=== PATIENT | female | born 1975 | race Caucasian/White ===

== ENCOUNTER → 2020-04-29 08:40 | Outpatient (BNVA) | payer BC, SELFPAY | PROVIDERS: PCP Family Medicine; Visit Provider Physician Assistant | DX: Z76.89 Persons encountering health services in other specified circumstances (principal) ==

== ENCOUNTER → 2020-05-13 08:13 | Outpatient (BNVA) | payer BC, SELFPAY | PROVIDERS: PCP Family Medicine; Referring Provider Family Medicine; Visit Provider Surgery | DX: Z76.89 Persons encountering health services in other specified circumstances (principal) ==

== ENCOUNTER 2020-05-16 08:42 | Outpatient (REF) | payer BC, SELFPAY ==
[2020-05-16 09:41] LABS: MANUAL DIFF FLAG NO
[2020-05-16 09:53] LABS: Basophils Absolute Auto 0.1 X10*3/uL (0.0-0.2); Basophils Percent Auto 0.5 % (0-2); Eosinophils Absolute Auto 0.1 X10*3/uL (0.0-0.4); Eosinophils Percent Auto 1.1 % (0-4); Hematocrit 43.4 % (37-47); Hemoglobin 14.1 g/dl (12.0-16.0); Imm Gran Abs Auto 0.05 X10*3/uL (0.00-0.03); Imm Gran Pct Auto 0.5 % (0.0-0.4); Lymphocytes Absolute Auto 1.8 X10*3/uL (1.2-4.9); Lymphocytes Percent Auto 20.2 % (20-40); Mean Corpuscular HGB Conc 32.5 g/dl (31.0-35.0); Mean Corpuscular Hemoglobin 29.2 pg (27.0-33.0); Mean Corpuscular Volume 89.9 fL (80-98); Mean Platelet Volume 10.4 fL (9.4-12.3); Monocytes Absolute Auto 0.5 X10*3/uL (0.1-1.2); Monocytes Percent Auto 5.9 % (2-11); Neutrophils Absolute Auto 6.5 X10*3/uL (2.0-8.3); Neutrophils Percent Auto 71.8 % (45-73); Platelet Count 326 X10*3/uL (160-400); Red Blood Count 4.83 X10*6/uL (4.20-5.50); Red Cell Distribution Width 12.9 % (11.0-16.0); White Blood Count 9.1 X10*3/uL (4.8-10.8)
[2020-05-16 09:54] LABS: INTERNATIONAL NORM RATIO 1.1 (0.9-1.1); Prothrombin Time 13.1 SEC (10.8-13.0)
[2020-05-16 10:23] LABS: Alanine Aminotransferase 14 U/L (0-31); Albumin Level 4.6 g/dL (3.5-5.0); Alkaline Phosphatase 96 U/L (39-117); Anion Gap 17 (12-20); Aspartate Amino Transferase 17 U/L (5-31); Bilirubin Total 0.6 mg/dL (0.0-1.0); Blood Urea Nitrogen 14 mg/dL (9-16); C Reactive Protein 0.84 mg/dL (< or = 0.50); Calcium 9.4 mg/dL (8.4-10.2); Carbon Dioxide 25 mmol/L (22-29); Chloride 100 mmol/L (96-108); Estimated Glomerular Filt Rate > 60; Glucose Random 80 mg/dL (60-115); Potassium 4.6 mmol/l (3.3-5.1); Sodium 137 mmol/L (135-145); Total Protein 7.8 g/dL (6.5-8.0)
[2020-05-16 10:28] LABS: TSH reflex Free T4 1.26 mIU/mL (0.32-4.0)
[2020-05-16 10:33] LABS: Estimated Average Glucose 105 mg/dL; Hemoglobin A1c % 5.3 %
[2020-05-16 15:02] LABS: Cholesterol 191 mg/dL; HDL Cholesterol 41 mg/dL; LDL Cholesterol Calculated 135 mg/dl; Triglycerides 78 mg/dL
[2020-05-17 12:51] LABS: Insulin Level Total 4.8 uIU/mL
== END 2020-05-16 08:43 | disposition home or self-care (01) ==
LOC: HO.LAB 08:42
PROVIDERS: PCP Family Medicine; Visit Provider Surgery
DX: E66.9 Obesity, unspecified (principal)
CPT/HCPCS: 36415; 80053; 80061; 83036; 83525; 84443; 85025; 85610; 85730; 86140; 86850

== ENCOUNTER → 2020-05-20 13:41 | Outpatient (BNVA) | payer BC, SELFPAY | PROVIDERS: PCP Family Medicine; Visit Provider Physician Assistant | DX: Z76.89 Persons encountering health services in other specified circumstances (principal) ==

== ENCOUNTER 2020-05-24 05:53 | Inpatient (IN) | payer BC, SELFPAY ==
[2020-05-19 09:01] VITALS: BMI 36.5
[2020-05-20 11:58] VITALS: BMI 34.5
[2020-05-20 12:16] VITALS: BP 133/90; PULSE 89; RESP 20; O2SAT 98
--- NOTE | 2020-05-20 12:38 | HO.ANESPROP2 ---
HPI - Anesthesia Eval Consult details Narrative: 45 yo F for gastric sleeve PMFSH Past Medical History Medical History (Updated 06/01/20 @ 09:12 by Aidan Rangel MD) Anxiety Asthma Back pain Depression GERD (gastroesophageal reflux disease) History of use of contraceptive intrauterine device (IUD) Lab test negative for COVID-19 virus Left ventricular hypertrophy Migraines Obesity Functional capacity: independent ambulation Family History Family History Father HTN (hypertension) Hyperlipidemia Mother HTN (hypertension) Obesity Diabetes Anxiety Skin cancer Son No problems noted. Daughter No problems noted. Family history of problems with anesthesia: No Surgical History Surgical History (Updated 06/01/20 @ 08:03 by MARLIN Clements) H/O colonoscopy History of lumbar surgery History of sleeve gastrectomy Hx of section History of Problems with Anesthesia: No Social History Social History Alcohol intake: never Smoking Status: Former smoker Tobacco Type: Cigarette Years Smoked: 6 service: No Current occupational status: employed Narrative Narrative: No recent illness, multiple negative COVID tests for work >4 mets with exercise Meds Allergies Allergy/AdvReac Type Severity Reaction Status Date / Time bacitracin Allergy Intermediate Rash Verified 06/01/20 08:01 doxycycline Allergy Intermediate Rash Verified 06/01/20 08:01 IV Contrast Allergy Intermediate hives Uncoded 06/01/20 08:01 Home Medications Medication Instructions Recorded Confirmed Type albuterol sulfate 90 mcg/actuation 2 puff PO Q4H PRN 05/13/20 05/19/20 History aerosol inhaler duloxetine 60 mg capsule,delayed 60 mg PO QPM 05/13/20 05/20/20 History release sumatriptan succinate 100 mg tablet 100 mg PO BID PRN 05/13/20 05/19/20 History hydroxyzine HCl 50 mg PO BEDTIME 05/20/20 05/20/20 History lorazepam 1 mg PO BID PRN 05/20/20 05/20/20 History pantoprazole 40 mg PO QPM 05/20/20 05/20/20 History Exam Exam Date and Time: May 20, 2020 1238 Height,Weight and Vital Signs: Height 5 ft 6 in Weight 97.069 kg Last Vital Signs Pulse 89 05/20/20 12:16 Resp 20 10/30/20 12:16 BP 133/90 H 05/20/20 12:16 Pulse Ox 98 05/20/20 12:16 Pertinent Lab Results Pertinent Lab Results: Laboratory Tests 05/16/20 09:00 Blood Type AB Positive Antibody Screen NEGATIVE Laboratory Tests 05/16/20 05/16/20 05/16/20 09:00 09:00 09:00 WBC 9.1 Hgb 14.1 Hct 43.4 Plt Count 326 PT 13.1 H INR 1.1 APTT 39.0 H Sodium 137 Potassium 4.6 Chloride 100 Carbon Dioxide 25 BUN 14 Creatinine 0.87 Estimated GFR > 60 Hemoglobin A1c % Total Bilirubin 0.6 AST 17 ALT 14 Alkaline Phosphatase 96 C-Reactive Protein 0.84 H Total Protein 7.8 Albumin 4.6 TSH 1.26 05/16/20 09:00 WBC Hgb Hct Plt Count PT INR APTT Sodium Potassium Chloride Carbon Dioxide BUN Creatinine Estimated GFR Hemoglobin A1c % 5.3 Total Bilirubin AST ALT Alkaline Phosphatase C-Reactive Protein Total Protein Albumin TSH Narrative Narrative: EKG 03/18/20: NSR@ 91 ECHO 02/2020: Nml study Airway Mallampati Class: I TM Dist: >3cm Neck ROM: Full Loose/Missing/Broken Teeth: No Heart: RRR Lungs: CTAB Assessment and Plan Assessment Anesthesia Assessment: Anesthesia Plan Discussed and PAT Visit
--- NOTE | 2020-05-23 20:32 | MHC.SHP ---
Pre-Procedural Eval Section A The patient is an INPATIENT: Yes The History & Physical has been completed within 30 days and I have reviewed it.: Yes Section B Chief Complaint: obesity Relevant Family History (Specify if Yes): Yes Relevant Social History: None Present Medications: None Allergies: Allergies Allergy/AdvReac Type Severity Reaction Status Date / Time bacitracin Allergy Intermediate Rash Verified 05/19/20 09:00 doxycycline Allergy Intermediate Rash Verified 05/19/20 09:00 IV Contrast Allergy Intermediate hives Uncoded 05/19/20 09:00 Review of Systems Sugical H&P ROS: Negative: Constitution, Cardiovascular, Respiratory, Neurological, Psychiatric, Hem-Onc, Allergic/Immunologic, Gastrointestinal, Genitourinary, Musculoskeletal, Integumentary, Endocrine and Eyes/Ears/Nose/Throat Exam Surgical H&P Exam: Normal: HEENT, Normal: Heart, Normal: Lungs, Normal: Extremities, Normal: Abdomen, Normal: Skin and Normal: Neurological Plan Diagnosis/Plan: Unchanged Patient has been examined and remains a candidate for the planned procedure
[2020-05-24] VITALS (15 sets, daily range): BP systolic 128–158; BP diastolic 84–100; PULSE 83–120; RESP 12–20; TEMP 36.1–37; O2SAT 94–100
--- NOTE | 2020-05-24 | XR_ITS ---
EXAMINATION: XR CHEST CLINICAL INFORMATION: Rule out pneumothorax COMPARISON: Previous chest x-ray February 2020 TECHNIQUE: Frontal view of the chest was obtained. FINDINGS: The cardiac and mediastinal contours are stable. There is atelectasis or small infiltrate at the left lung base. The lungs are otherwise clear. There is no pleural effusion or pneumothorax. There are new postoperative changes below the left hemidiaphragm. Bony structures are unremarkable. XR/XR chest 1V IMPRESSION: Left lower lobe atelectasis or small infiltrate. No pneumothorax.
[2020-05-24 06:50] LABS: SARS COV2 PCR INHOUSE NEGATIVE (Negative)
[2020-05-24] MEDS: Lactated Ringers 1,000 ML 999 ML IVCONT (06:55)
[2020-05-24] MEDS: Lactated Ringers 1,000 ML 100 ML IVCONT (06:56)
[2020-05-24] MEDS: ceFAZolin Sodium/Dextrose,Iso 2 GM/50 ML PIGGYBACK IV ×2 (06:56→13:46)
--- NOTE | 2020-05-24 07:10 | P.CONAN_ITS ---
[facility] Past Medical History Medical History Anxiety Asthma Back pain Depression GERD (gastroesophageal reflux disease) History of use of contraceptive intrauterine device (IUD) Lab test negative for COVID-19 virus Migraines Obesity Functional capacity: independent ambulation Family History Family History Father HTN (hypertension) Hyperlipidemia Mother HTN (hypertension) Obesity Diabetes Anxiety Skin cancer Son No problems noted. Daughter No problems noted. Surgical History Surgical History H/O colonoscopy History of lumbar surgery Hx of section Social History Social History Are you a primary healthcare administrator to a significant other at home: Yes Do you presently have visiting nurse or other home services: No Alcohol intake: never Smoking Status: Former smoker Tobacco Type: Cigarette Years Smoked: 6 Smoked in Last 30 Days: No Smoking Quit Date: as teen Use of substances other than those prescribed or required for medical reasons: No Have you been hit, kicked, punched, or otherwise hurt by someone within the past year? If so, by whom?: No Advance Directives Information Provided: No Recently lost weight without trying: No Meds Allergies Allergy/AdvReac Type Severity Reaction Status Date / Time bacitracin Allergy Intermediate Rash Verified 05/19/20 09:00 doxycycline Allergy Intermediate Rash Verified 05/19/20 09:00 IV Contrast Allergy Intermediate hives Uncoded 05/19/20 09:00 Home Medications Medication Instructions Recorded Confirmed Type albuterol sulfate 90 mcg/actuation 2 puff PO Q4H PRN 05/13/20 05/19/20 History aerosol inhaler duloxetine 60 mg capsule,delayed 60 mg PO QPM 05/13/20 05/20/20 History release sumatriptan succinate 100 mg tablet 100 mg PO BID PRN 05/13/20 05/19/20 History hydroxyzine HCl 50 mg PO BEDTIME 05/20/20 05/20/20 History lorazepam 1 mg PO BID PRN 05/20/20 05/20/20 History pantoprazole 40 mg PO QPM 05/20/20 05/20/20 History Exam Exam Date and Time: May 24, 2020 0710 Height,Weight and Vital Signs: Height 5 ft 6 in Weight 97.069 kg Last Vital Signs Temp 98.1 F 05/24/20 06:24 Pulse 87 05/24/20 06:24 Resp 18 05/24/20 06:24 BP 128/86 05/24/20 06:24 Pulse Ox 97 05/24/20 06:24 Pertinent Lab Results Pertinent Lab Results: Laboratory Tests 05/16/20 05/24/20 05/24/20 09:00 05:42 05:52 Coronavirus (PCR) NEGATIVE Blood Type AB Positive AB Positive Antibody Screen NEGATIVE NEGATIVE Airway Mallampati Class: I TM Dist: >3cm Neck ROM: Full
[2020-05-24] MEDS: Famotidine/PF 20 MG/2 ML VIAL IVPUSH ×2 (11:00→20:43)
[2020-05-24 11:40] LABS: Hematocrit 41.8 % (37-47); Hemoglobin 13.3 g/dl (12.0-16.0)
[2020-05-24 12:05] LABS: Anion Gap 20 (12-20); Blood Urea Nitrogen 7 mg/dL (9-16); Calcium 7.7 mg/dL (8.4-10.2); Carbon Dioxide 17 mmol/L (22-29); Chloride 105 mmol/L (96-108); Creatinine Clr Calc Pharmacy 113.6; Estimated Glomerular Filt Rate > 60; Glucose Random 89 mg/dL (60-115); Potassium 4.6 mmol/l (3.3-5.1); Sodium 137 mmol/L (135-145)
--- NOTE | 2020-05-24 12:39 | P.BOP_ITS ---
Brief Operative Note Date of procedure: 05/24/20 Pre-op diagnosis: Severe obesity with a BMI of 38.9 kg/m2 and comorbidities (see below) Post-op diagnosis: other (Diaphragmatic hernia) Procedure: INITIAL PATIENT BMI ON PRESENTATION AT OUR OFFICE: 38.9 kg/m2 LAST BMI BEFORE SURGERY: 36.2 kg/m2 COMORBIDITIES: GERD, Depression, Anxiety, asthma, migraines, left ventricular hypertrophy The patient participated in an intensive weekly lifestyle intervention and exercise program during which the patient has lost between the initial office visit and the last preoperative visit 25.6 lbs, or 10.6% of initial actual body weight. The patient met the BMI-criteria for bariatric surgery based on the BMI on initial presentation. The patient should not be penalized for achieving such weight loss because it is not sustainable long-term without surgical intervention and it was achieved in preparation for bariatric surgery under my direction and based on my published research ([email or web address] and [email or web address]) that a 10% preoperative weight loss improves long-term weight loss after surgery and reduces perioperative complications. Insurance carriers such as [facility] have endorsed my recommendations and have included in their policies criteria to include a 10% preoperative weight loss requirement. PROCEDURE: Esophago-gastroscopy, laparoscopic repair of incarcerated diaphragmatic hernia, laparoscopic lysis of adhesions, laparoscopic sleeve gastrectomy and laparoscopic gastropexy INDICATIONS: This is a 45 year-old female who was electively scheduled for laparoscopic, possibly open sleeve gastrectomy. The risks and complications of the procedure were discussed with the patient in advance, particularly the possibility of ; pulmonary embolism; staple line leak; bleeding; GERD; cardiac, pulmonary, or renal complications; as well as long-term problems such as insufficient weight loss, vitamin deficiency, strictures, or ulcers. The patient understood all the risks, and was in agreement to proceed with surgery. DESCRIPTION OF PROCEDURE: After informed consent was obtained from the patient, the patient was given preoperative antibiotics, and was transferred to the operating room. After successful induction of general anesthesia, pneumatic compressive devices were placed on both lower extremities. An upper endoscopy was performed next. The oropharynx and esophagus appeared to be within normal limits. There was a diaphragmatic hernia present of moderate size consistent with the findings of the preoperative upper GI. The stomach was entered. Then after all fluid and air were suctioned and the stomach was fully decompressed, the scope was withdrawn and secured in the mid esophagus. The patient was then prepped and draped in the usual sterile manner, and abdominal access was established at the right upper quadrant with the Savana technique. A 12 mm blunt port was inserted, and the abdomen was insufflated with CO2 to a pressure of 15 mmHg. Under direct visualization, additional ports were placed, specifically two 5 mm Versi-step ports to the left upper quadrant, and a 5 mm Versi-Step port to the right upper quadrant. 1% lidocained plan was used to infiltrate all port sites as well as all fascia defects. Following that, the patient was placed in a steep reverse Trendelenburg position. An additional 5 mm port was placed to the right flank for the Mediflex retractor that was used to retract the left lobe of the liver. The gastro-esophageal fat pad was opened with the ultrasonic device (Thunderbeat, Olympus) and the anterior esophagus and hiatus were exposed. The angle of His was opened with the ultrasonic device the fundus of the stomach from any diaphragmatic and splenic attachments. I then opened the gastrocolic ligament between the transverse colon and the greater curvature of the stomach with the ultrasonic device to enter the lesser sac and facilitate the ligation of the short gastric vessels. I started at a mid-point along the greater curvature and using the Thunderbeat, all short gastric vessels were divided all the way to the angle of His until the left helen was completely dissected at its entirety. I then divided the gastro-colic ligament distally to a distance of about 3-4 cm proximal to the esophagus. There were extensive congenital adhesions between the pancreas and posterior gastric wall. Those were lysed completely with the ultrasonic device. Adhesiolysis took approximately 25 min to complete. There was an obvious significant-sized hiatal hernia. I continued dissecting along the hiatus toward the left helen and the angle of His. I fully mobilized the fat pad that was incarcerated in the hernia. I then continued by dissecting even further into the posterior retro-esophageal space all the way to the angle of His. I continued to mobilize the esophagus into the mediastinum circumferentially. The right helen was also completely dissected. Both vagal nerves were seen and preserved. At that point, I was able to have at least 3 to 5 cm of esophagus into the abdomen. After I completely mobilized the esophagus from both the left and right helen and I had a good mobilization of the esophagus circumferentially, I closed the hernia defect with three interrupted #0 Surgidac suture using the Endo Stitch device, one of which were placed posterior and two anterior to the esophagus. The stomach was then divided transversely with one Endo CALEB-45 and four CALEB-60 articulating purple loads using the ReviewPro stapler and loads. Every effort was made that the gastric sleeve had a tubular shape and an even caliber throughout. Once the sleeve resection was completed, the staple line of the gastric sleeve was reinforced with Hemoclips. The resected stomach was retrieved without difficulty from the Savana port. A gastropexy was then performed in order to prevent postoperative GERD and partial gastric volvulus. Several interrupted 2.0 Surgidac sutures were placed between the sleeve's staple line and the previously divided greater omentum and gastro-colic ligament using the Endo-Stitch device. An upper endoscopy was performed. There was no narrowing at the GE junction. The scope was easily advanced all the way to the pylorus which was clearly visualized. There was no narrowing anywhere and the sleeve's caliber was even throughout. The sleeve's staple line was inspected and there was no evidence of ischemia, bleeding or dehiscence. At that point the gastroscope was withdrawn from the patient?s mouth while we were decompressing the bowel and the stomach f rom any remaining air. I looked into the lesser sac to see how the sleeve was situating and it was situating well. There was no bleeding from the staple line, spleen, or short gastric vessels. The Mediflex retractor was removed, and the undersurface of the liver was inspected and there was no bleeding. The patient was placed in supine position. I closed the fascial defect of the 12 mm port site with a figure of eight #1 Polysorb suture. Then 100 cc 0.25 % Marcaine plain with 10 mg of Dexamethasone were used to infiltrate the fascial closure as well as all skin incisions. At this point, the abdomen was deflated, all ports were removed under direct vision, and no bleeding was noted from any of the port sites. The skin incisions were irrigated with saline and were closed with 4-0 absorbable monofilament sutures. Steri-Strips and OpSites were used to cover all incisions. The patient was extubated and was transferred in stable condition to the recovery room for further care. I was present and performed all raymond parts of the procedure. Ms. Amos was the paraprofessional education assistant. There were no residents to assist with this case. Please send copy of the operative report to Dr. lEias Gonzalez. Hugo Rangel MD, PhD, FACS Surgeon: Aidan Rangel MD Anesthesia: GETA, local and other (TAP block ) Insurance Healthcare Consultant: Gabby Amos Estimated blood loss (mL): 10 IV fluids (mL): 3,000 Urine output (mL): 0 (No Thompson to record) Pathology: other (Stomach) Condition: stable Disposition: PACU
--- NOTE | 2020-05-24 12:45 | PM.PNGS ---
Subjective Subjective Interval history: Patient has mild incisional pain. Was able to ambulate and use the incentive spirometer. Physical Exam Vital Signs: Vital Signs: Vital Signs Temp Pulse Resp BP Pulse Ox 05/24/20 12:15 109 H 16 148/98 H 100 05/24/20 12:00 107 H 16 143/96 H 99 05/24/20 11:45 108 H 16 140/97 H 98 05/24/20 11:30 107 H 16 145/98 H 97 05/24/20 11:15 113 H 16 142/100 H 98 05/24/20 11:00 117 H 16 152/96 H 99 05/24/20 10:44 120 H 16 158/95 H 100 05/24/20 10:39 109 H 14 149/93 H 100 05/24/20 10:34 108 H 14 128/85 99 05/24/20 10:29 97.3 F 111 H 12 148/96 H 98 05/24/20 06:24 98.1 F 87 18 128/86 97 Body Mass Index 34.5 Resp: Effort & Inspection: normal respiratory effort Cardio: Jugular venous distension: no JVD Rate: regular rate GI: Inspection: Yes normal to inspection, Yes incision (dry, clean and intact) and Yes obesity Extrem: Right lower extremity: normal to inspection (no calf tenderness) Left lower extremity: normal to inspection (no calf tenderness) Progress Note: A&P Assessment and plan (1) Obesity: Status: Acute Assessment and Plan: 45 year old female was admitted 05/24/20 with morbid obesity and comorbidities. Problem 1: s/p laparoscopic sleeve gastrectomy, gastropexy, diaphragmatic hernia repair and lysis of adhesions Status: Doing well Plan: Check am labs, If OK, will continue phase 1 bariatric diet and discharge later today. (2) BMI 35.0-35.9,adult: Status: Acute (3) Anxiety: Status: Acute (4) Depression: Status: Acute (5) GERD (gastroesophageal reflux disease): Problem details: new Rx for pantoprazole Prophylactic Status: Acute (6) Migraines: Problem details: 1-2 x?s monthly Status: Acute (7) Asthma: Problem details: exercise induced-has prn inhaler Status: Acute (8) Diaphragmatic hernia: Status: Acute (9) S/P laparoscopic sleeve gastrectomy: Status: Acute (10) Status post repair of paraesophageal diaphragmatic hernia: Status: Acute (11) Left ventricular hypertrophy: Status: Acute Fall Risk Details Current Medications: Current Medications Generic Name Dose Route Start Last Admin Trade Name Freq PRN Reason Stop Dose Admin Albuterol Sulfate 2.5 mg 05/24/20 05:41 Albuterol Sulfate (0.083%) 2.5 Mg/3 Ml Vial.Neb INHALE ONCE PRN Shortness of Breath/Wheezing Albuterol Sulfate 2.5 mg 05/24/20 09:50 Albuterol Sulfate (0.083%) 2.5 Mg/3 Ml Vial.Neb INHALE ONCE PRN Wheezing Albuterol Sulfate 2 puff 05/24/20 10:34 Albuterol Sulfate 90 Mcg 8 Gm Inhaler INHALE Q4H PRN Shortness Of Breath Albuterol Sulfate 2 puff 05/24/20 12:00 Albuterol Sulfate 90 Mcg 8 Gm Inhaler INHALE RQ6H DESIRE Duloxetine HCl 60 mg 05/24/20 21:00 Duloxetine Hcl 60 Mg Capsule. PO BEDTIME DESIRE Famotidine 20 mg 05/24/20 10:45 05/24/20 11:00 Famotidine/Pf 20 Mg/2 Ml Vial IVPUSH 20 mg BID DESIRE Administration Fentanyl 50 mcg 05/24/20 09:50 Fentanyl Citrate/Pf 100 Mcg/2 Ml Vial IVPUSH Q5M PRN Pain, Severe (Pain Scale 7-10) Hydromorphone HCl 0.25 mg 05/24/20 10:26 Hydromorphone Hcl 0.5 Mg/0.5 Ml Syringe IVPUSH Q4H PRN Pain, Moderate (Pain Scale 4-6 Hydroxyzine HCl 50 mg 05/24/20 21:00 Hydroxyzine Hcl 25 Mg Tablet PO BEDTIME DESIRE Lactated Ringer's 1,000 mls @ 100 mls/hr 05/24/20 05:45 05/24/20 06:56 Lr IVCONT 100 mls/hr .Q10H DESIRE Administration Lactated Ringer's 1,000 mls @ 150 mls/hr 05/24/20 10:30 Lr IVCONT .Q6H40M DESIRE Cefazolin Sodium/Dextrose 2 gm in 50 mls @ 100 mls/hr 05/24/20 14:00 Ancef IV 05/24/20 14:29 POSTOP ONE Acetaminophen 1,000 mg in 100 mls @ 400 mls/hr 05/24/20 12:00 Ofirmev IV Q6H DESIRE Lorazepam 1 mg 05/24/20 10:34 Lorazepam 1 Mg Tablet PO BID PRN Anxiety Metoclopramide HCl 10 mg 05/24/20 10:26 Metoclopramide Hcl 10 Mg/2 Ml Vial IVPUSH Q6H PRN Nausea Ondansetron HCl 4 mg 05/24/20 09:50 Ondansetron Hcl 4 Mg/2 Ml Vial IVPUSH ONCE PRN Nausea and Vomiting Ondansetron HCl 4 mg 05/24/20 11:00 Ondansetron Hcl 4 Mg/2 Ml Vial IVPUSH Q8H DESIRE Ondansetron HCl 4 mg 05/24/20 10:54 Ondansetron Odt 4 Mg Tab.Rapdis TRANSLINGU Q6H PRN nausea and vomiting Sodium Chloride 3 ml 05/24/20 16:00 0.9 % Sodium Chloride Flush 3 Ml Syringe IVFLUSH QSHIFT DESIRE Sumatriptan Succinate 100 mg 05/24/20 10:34 Sumatriptan Succinate 100 Mg Tablet PO BID PRN Headache Time Spent With Patient Time: Total time spent is greater than 50% in coordination of care (as documented) at patient's floor/unit and/or counseling patient: Time with patient: less than 15 minutes
--- NOTE | 2020-05-24 15:00 | MHC.CM.PN ---
NURSE STOKER ERECTOR NOTE EECTRNIC MEDICAL RECORD REVIEWEDAONG WITH CASE DISCUSSED WITH STAFF NURSE . MET WITH PATIENT AND EXPLAINED THE ROLE OF THE NURSE STOKER ERECTOR IN THE TRANSITION FROM HOSPITA TO E, EDUCATED ABOUT THE IMPORTANCE OF HAVING A HEALTH CARE PROXY. PATIENT WAS AWAKE ALERT , BUT WAS COMPAINING IF A HEADACHE, (SHADES WERE PULED TO HELP) AND INFORMED STAFF NURSE THAT PATIENT WAS QUESTIONING WHETHER SHE COULD HAVE SOME TYELENOL, PATIENT LIVES WITH HER AND TWO CHILDREN SHE IS EMPLOYED AT [employer] WITH THE MRI. (SHE HAS TAKEN THREE WEEKS OFF AND HAS SHORT TERM DISABIITY PAPERWORK THAT NEEDS TO BE COMPLETED BY THE BARIATRIC SURGEONS. SHE CONFIRMED HER PCP, SHE IS ACTIVE ,INDEPENDENT IN ALL ADLS AND MOBILITY. SHE IS FOLLWED FOR HER ANXIETY/DEPRESSIONY S/P BARIATRIC SURGIICAL PROCEDURE. DISCHARGE PLAN HOME WITH ANTICIPATED NO SERVICES TRANSPRTATIN AT DISCHARGE FAMILY PCP DR TORI JACQUES N PATIENT TO CALL FOR POST HOSPITAL DISCHARGE FOLLOW UP. DID CONFIRM THAT SHE HAS ANXIETY AND DEPRESSION AND HAS SERVICES SELF RESUMPTION OF HER MENTAL HEALTH COUNSEING
[2020-05-24] MEDS: Lactated Ringers 1,000 ML 150 ML IVCONT ×2 (17:10→21:26)
[2020-05-24] MEDS: SUMAtriptan succinate 100 MG TABLET PO (17:49)
[2020-05-24] MEDS: ondansetron HCL 4 MG/2 ML VIAL IVPUSH (18:23)
[2020-05-24] MEDS: Albuterol Sulfate 90 MCG 8 GM INHALER 2 PUFF INHALE (19:12)
[2020-05-24] MEDS: DULoxetine HCl 60 MG CAPSULE.DR PO (20:44)
[2020-05-24] MEDS: hydrOXYzine HCL 25 MG TABLET 50 MG PO (20:44)
[2020-05-25] MEDS: 0.9 % Sodium Chloride Flush 3 ML SYRINGE IVFLUSH (00:14)
[2020-05-25] MEDS: ondansetron HCL 4 MG/2 ML VIAL IVPUSH ×2 (02:48→12:00)
[2020-05-25 03:38] VITALS: BP 139/74; PULSE 76; RESP 19; TEMP 36.8; O2SAT 97
[2020-05-25] MEDS: Lactated Ringers 1,000 ML 150 ML IVCONT ×2 (04:20→11:59)
[2020-05-25] MEDS: Albuterol Sulfate 90 MCG 8 GM INHALER 2 PUFF INHALE (05:58)
--- NOTE | 2020-05-25 06:00 | XR_ITS ---
EXAMINATION: XR CHEST CLINICAL INFORMATION: Postop atelectasis COMPARISON: Previous chest x-ray most recent from yesterday TECHNIQUE: 2 views of the chest were obtained. FINDINGS: The cardiac and mediastinal contours are stable. There is interval improvement in left base atelectasis compared to yesterday's exam. The lungs are clear. There is slight blunting at the left lateral costophrenic angle questionable for a tiny left pleural effusion. There is no pneumothorax. Bony structures are unremarkable. There are postsurgical changes under the left hemidiaphragm. XR/XR chest 2V IMPRESSION: Improved left base atelectasis from yesterday's exam.
--- NOTE | 2020-05-25 06:30 | PC.NURSE ---
patient pod#1 had a good shift and napped well with no s/sx resp distress. voided in bathroom, recorded po water on sheet at bedside independently. pain management with iv tylenol as ordered, no n/v. transported via w/c and drying machine back tender to radiology for am ordered cxr by . note sent to surgeon to verify okay for xray to be done in ed setting as a post op pt, no response. approval for transport by nursing grinding and spraying supervisor. patient returned to s3 without incident, ambulated >300 feet with assigned rn around unit prior to xray appt. watching tv in bed at 0635
[2020-05-25 07:58] VITALS: BP 135/73; PULSE 81; RESP 19; TEMP 36.5; O2SAT 100
[2020-05-25] MEDS: Famotidine/PF 20 MG/2 ML VIAL IVPUSH (08:31)
--- NOTE | 2020-05-25 08:57 | MHC.CM.PN ---
nurse railway signalling engineer MONA [employer]IC MEDICAL REC ORD REVIEWED ALONG WITH CASE DISCUSSED WITH STAFF LYNDON , MET WITH PATIENT AGAIN TODAY SHE REPORTED HER HEADACH IMPROVED AFTER RECIVING SOME MEDICINE YESTERDAY , SHE REPORTED SHE HAD A DIDDIXUT NIGHT TOSSING AND TURNING AND THEN GETING UP TO THE BATHROOM, MOST LIKELY BEING IN A DIFFERENT PLACE. SHE IS ANTICIPATED TO BE DISCHARGED HOME TODAY NO SERVICES . DISCHARGE PLAN HOME WITH NO SERVICES FOLLOW UP WITH THE BARIATRIC SURGEON PER DISCHARGE INSTRUCTIONS SELF RESUMPTION FOR HER MENTAL [facility] COUNSELING PCP DR DR JACQUES PATIENT INSTRUCTED TO [facility] FOR POST HOSPITLAL DISCHARGE FOR FOLLOW UP TRANSPORTATION FAMILY
[2020-05-25 09:45] LABS: MANUAL DIFF FLAG NO
[2020-05-25 09:51] LABS: Basophils Percent Auto 0.3 % (0-2); Eosinophils Absolute Auto 0.1 X10*3/uL (0.0-0.4); Eosinophils Percent Auto 0.6 % (0-4); Hematocrit 39.2 % (37-47); Hemoglobin 12.8 g/dl (12.0-16.0); Imm Gran Abs Auto 0.05 X10*3/uL (0.00-0.03); Imm Gran Pct Auto 0.4 % (0.0-0.4); Lymphocytes Absolute Auto 2.1 X10*3/uL (1.2-4.9); Lymphocytes Percent Auto 18.2 % (20-40); Mean Corpuscular HGB Conc 32.7 g/dl (31.0-35.0); Mean Corpuscular Hemoglobin 29.2 pg (27.0-33.0); Mean Corpuscular Volume 89.3 fL (80-98); Mean Platelet Volume 10.9 fL (9.4-12.3); Monocytes Absolute Auto 0.8 X10*3/uL (0.1-1.2); Monocytes Percent Auto 6.9 % (2-11); Neutrophils Absolute Auto 8.6 X10*3/uL (2.0-8.3); Neutrophils Percent Auto 73.6 % (45-73); Platelet Count 290 X10*3/uL (160-400); Red Blood Count 4.39 X10*6/uL (4.20-5.50); Red Cell Distribution Width 13.2 % (11.0-16.0); White Blood Count 11.6 X10*3/uL (4.8-10.8)
[2020-05-25 10:34] LABS: Anion Gap 15 (12-20); Blood Urea Nitrogen 7 mg/dL (9-16); Calcium 7.8 mg/dL (8.4-10.2); Carbon Dioxide 22 mmol/L (22-29); Chloride 104 mmol/L (96-108); Creatinine Clr Calc Pharmacy 121.7; Estimated Glomerular Filt Rate > 60; Glucose Random 78 mg/dL (60-115); Potassium 4.3 mmol/l (3.3-5.1); Sodium 137 mmol/L (135-145)
--- NOTE | 2020-05-25 12:33 | HO.POSTANES ---
Post Anesthesia Evaluation Post Anesthesia Evaluation Vital Signs: Vital Signs Temp Pulse Resp BP Pulse Ox 05/25/20 07:58 97.7 F 81 19 135/73 100 05/25/20 03:38 98.3 F 76 19 139/74 97 Anesthesia: General Endotracheal-GETA Mental Status: Awake Pain Control: Satisfactory Nausea/Vomiting: None Hydration: Adequate Anesthesia-Related Issues: No Anes. Related Issues
--- NOTE | 2020-07-14 09:09 | P.DS_ITS ---
DS: Providers Provider Date of admission: 05/24/20 05:53 Primary care physician: Rivera Gonzalez MD DS: Diagnosis Discharge Diagnosis (1) Obesity: Status: Acute (2) BMI 35.0-35.9,adult: Status: Acute (3) Anxiety: Status: Acute (4) Depression: Status: Acute (5) GERD (gastroesophageal reflux disease): Status: Acute Problem details: new Rx for pantoprazole Prophylactic (6) Migraines: Status: Acute Problem details: 1-2 x?s monthly (7) Asthma: Status: Acute Problem details: exercise induced-has prn inhaler (8) Diaphragmatic hernia: Status: Acute (9) S/P laparoscopic sleeve gastrectomy: Status: Acute (10) Status post repair of paraesophageal diaphragmatic hernia: Status: Acute (11) Left ventricular hypertrophy: Status: Acute DS: Medications Discharge Medications Home Medications: Home Medications Medication Instructions Recorded Confirmed albuterol sulfate 90 mcg/actuation 2 puff PO Q4H PRN 05/13/20 05/19/20 aerosol inhaler duloxetine 60 mg capsule,delayed 60 mg PO QPM 05/13/20 05/20/20 release sumatriptan succinate 100 mg tablet 100 mg PO BID PRN 05/13/20 05/19/20 hydroxyzine HCl 50 mg PO BEDTIME 05/20/20 05/20/20 lorazepam 1 mg PO BID PRN 05/20/20 05/20/20 pantoprazole 40 mg PO QPM 05/20/20 05/20/20 Previous Rx's Medication Instructions Recorded ondansetron HCl 4 mg tablet 4 mg PO Q6H PRN #30 tab 05/13/20 sucralfate 1 gram tablet 1 g PO BID #60 tab 05/30/20 cholecalciferol (vitamin D3) 50 50 mcg PO DAILY #90 cap 07/08/20 mcg (2,000 unit) capsule DS: Summary Time Spent with Patient Time attestation: Total time spent providing and/or coordinating discharge services: Physical Exam Vital Signs: Vital Signs: Last Vital Signs Temp 97.7 F 05/25/20 07:58 Pulse 81 05/25/20 07:58 Resp 19 05/25/20 07:58 BP 135/73 05/25/20 07:58 Pulse Ox 100 05/25/20 07:58 Body Mass Index 34.5 DS: Data Data Completed and Pending Completed studies during hospitalization [Text1]: Pending at discharge 05/24/20 08:32 Surgical [PTH] Routine Procedures Excision of Stomach, Percutaneous Endoscopic Approach, Vertical (05/24/20) Release Peritoneum, Percutaneous Endoscopic Approach (05/24/20) Repair Diaphragm, Percutaneous Endoscopic Approach (05/24/20) Labs on day of discharge: 05/16/20 09:00 Type and Screen Routine 05/23/20 07:30 Lactated Ringers [Lr] 1,000 ml IVCONT 999 mls/hr 05/23/20 20:33 ceFAZolin Sodium/Dextrose,Iso [Ancef] 2 gm in 50 ml IV PREOP 05/24/20 XR chest 1V Stat 05/24/20 05:41 Acetaminophen [Ofirmev] 1,000 mg in 100 ml IV PREOP Albuterol Sulfate (0.083%) [Ventolin (0.083%)] 2.5 mg INHALE ONCE PRN 05/24/20 05:42 SARS COV2 PCR INHOUSE Stat 05/24/20 05:45 Lactated Ringers [Lr] 1,000 ml IVCONT 100 mls/hr 05/24/20 05:52 Type and Screen Stat 05/24/20 06:26 Acetaminophen [Ofirmev] 1,000 mg in 100 ml IV As directed ceFAZolin Sodium/Dextrose,Iso [Ancef] 2 gm in 50 ml .ROUTE As directed 05/24/20 06:58 dexAMETHasone Sod Phosphate/PF [Decadron] 10 mg .ROUTE .STK-MED ONE 05/24/20 07:03 Bupivacaine MPF 0.25 % [Sensorcaine-MPF 0.25% 10 ML] 10 ml .ROUTE .STK-MED ONE Lidocaine HCl 1 % MPF [Xylocaine 1 % MPF] 5 ml .ROUTE .STK-MED ONE 05/24/20 07:09 Continuous pulse oximetry CONT Vital Signs Q1H Vital Signs Q5MIN 05/24/20 07:22 Ketamine HCl/NS 50 mg IVPUSH .STK-MED ONE Lidocaine HCl 2 % MPF [Xylocaine 2 % MPF] 5 ml .ROUTE .STK-MED ONE Midazolam HCl/PF [Versed] 2 mg IVPUSH .STK-MED ONE Rocuronium [place] [Zemuron] 100 mg IV .STK-MED ONE fentaNYL citrate/PF [Sublimaze] 50 mcg .ROUTE .STK-MED ONE propofoL [Diprivan] 200 mg IVPUSH .STK-MED ONE 05/24/20 08:02 dexAMETHasone sod phosphate [Decadron] 4 mg .ROUTE .STK-MED ONE 05/24/20 08:09 ondansetron HCL [Zofran] 4 mg .ROUTE .STK-MED ONE 05/24/20 08:22 Phenylephrine HCL 1,000 mcg IVPUSH .STK-MED ONE 05/24/20 08:27 HYDROmorphone HCl [Dilaudid] 2 mg .ROUTE .[facility]-MED ONE 05/24/20 08:32 Surgical [PTH] Routine 05/24/20 09:29 Sugammadex Sodium [Bridion] 200 mg IVPUSH .STK-MED ONE ondansetron HCL [Zofran] 4 mg .ROUTE .[facility]-MED ONE 05/24/20 09:32 Glycopyrrolate [Robinul] 0.2 mg .ROUTE .ST-MED ONE Ketamine HCl/NS 50 mg IVPUSH .STK-MED ONE propofoL [Diprivan] 200 mg IVPUSH .[facility]-MED ONE 05/24/20 09:50 Continuous pulse oximetry CONT Oxygen administration Nasal Cannula 3 lpm Vital Signs Q1H Vital Signs Q5MIN Albuterol Sulfate (0.083%) [Ventolin (0.083%)] 2.5 mg INHALE ONCE PRN fentaNYL citrate/PF [Sublimaze] 50 mcg IVPUSH Q5M PRN ondansetron HCL [Zofran] 4 mg IVPUSH ONCE PRN 05/24/20 09:57 Esmolol HCl [Brevibloc] 100,000 mcg .ROUTE .STK-MED ONE 05/24/20 Breakfast NPO Diet 05/24/20 10:26 Ambulate Q4H WHILE AWAKE Compression Therapy QSHIFT Head of bed elevation DIRECTED Incentive Spirometry Q1HR WHILE AWAKE Intake and Output Q4HR Code Status Routine Albuterol Sulfate [Ventolin] 2 puff INHALE RQ6H PRN HYDROmorphone HCl [Dilaudid] 0.25 mg IVPUSH Q4H PRN Metoclopramide HCl [Reglan] 10 mg IVPUSH Q6H PRN 05/24/20 10:27 Apply Abdominal Binder TOLERATED Vital Signs Q4H 05/24/20 10:30 Lactated Ringers [Lr] 1,000 ml IVCONT 150 mls/hr 05/24/20 10:34 Albuterol Sulfate [Ventolin] 2 puff INHALE Q4H PRN LORazepam [Ativan] 1 mg PO BID PRN SUMAtriptan succinate [Imitrex] 100 mg PO BID PRN 05/24/20 10:45 Famotidine/PF [Pepcid/PF] 20 mg IVPUSH BID 05/24/20 10:54 ondansetron ODT [Zofran ODT] 4 mg TRANSLINGU Q6H PRN 05/24/20 10:57 Famotidine/PF [Pepcid/PF] 20 mg IVPUSH .STK-MED ONE 05/24/20 11:00 Basic Metabolic Panel Stat Hemoglobin and Hematocrit Stat ondansetron HCL [Zofran] 4 mg IVPUSH Q8H 05/24/20 12:00 Acetaminophen [Ofirmev] 1,000 mg in 100 ml IV Q6H Albuterol Sulfate [Ventolin] 2 puff INHALE RQ6H 05/24/20 14:00 ceFAZolin Sodium/Dextrose,Iso [Ancef] 2 gm in 50 ml IV POSTOP 05/24/20 16:00 0.9 % Sodium Chloride Flush [NS Flush] 3 ml IVFLUSH QSHIFT 05/24/20 21:00 DULoxetine HCl [Cymbalta] 60 mg PO BEDTIME hydrOXYzine HCL [Atarax] 50 mg PO BEDTIME 05/25/20 06:00 XR chest 2V Routine 05/25/20 09:07 Basic Metabolic Panel DAILY@0600 Complete Blood Count Auto Diff DAILY@0600 Laboratory Last Values WBC 11.6 X10*3/uL (4.8-10.8) H 05/25/20 09:07 RBC 4.39 X10*6/uL (4.20-5.50) 05/25/20 09:07 Hgb 12.8 g/dl (12.0-16.0) 05/25/20 09:07 Hct 39.2 % (37-47) 05/25/20 09:07 MCV 89.3 fL (80-98) 05/25/20 09:07 MCH 29.2 pg (27.0-33.0) 05/25/20 09:07 MCHC 32.7 g/dl (31.0-35.0) 05/25/20 09:07 RDW 13.2 % (11.0-16.0) 05/25/20 09:07 Plt Count 290 X10*3/uL (160-400) 05/25/20 09:07 MPV 10.9 fL (9.4-12.3) 05/25/20 09:07 Immature Gran % (Auto) 0.4 % (0.0-0.4) 05/25/20 09:07 Neut % (Auto) 73.6 % (45-73) H 05/25/20 09:07 Lymph % (Auto) 18.2 % (20-40) L 05/25/20 09:07 [place] % (Auto) 6.9 % (2-11) 05/25/20 09:07 Eos % (Auto) 0.6 % (0-4) 05/25/20 09:07 Baso % (Auto) 0.3 % (0-2) 05/25/20 09:07 Lymph # (Auto) 2.1 X10*3/uL (1.2-4.9) 05/25/20 09:07 [place] # (Auto) 0.8 X10*3/uL (0.1-1.2) 05/25/20 09:07 Eos # (Auto) 0.1 X10*3/uL (0.0-0.4) 05/25/20 09:07 Baso # (Auto) 0.0 X10*3/uL (0.0-0.2) 05/25/20 09:07 Abs Immat Gran (auto) 0.05 X10*3/uL (0.00-0.03) H 05/25/20 09:07 Absolute Neuts (auto) 8.6 X10*3/uL (2.0-8.3) H 05/25/20 09:07 Absolute Nucleated RBC 0.000 X10*3/uL (0.0-0.012) 05/25/20 09:07 Nucleated RBC % (auto) 0.0 /100WBC (0.0-0.2) 05/25/20 09:07 Sodium 137 mmol/L (135-145) 05/25/20 09:07 Potassium 4.3 mmol/l (3.3-5.1) 05/25/20 09:07 Chloride 104 mmol/L (96-108) 05/25/20 09:07 Carbon Dioxide 22 mmol/L (22-29) 05/25/20 09:07 Anion Gap 15 (12-20) 05/25/20 09:07 BUN 7 mg/dL (9-16) L 05/25/20 09:07 Creatinine 0.70 mg/dL (0.5-1.4) 05/25/20 09:07 Estim Creat Clear Calc 121.7 05/25/20 09:07 Estimated GFR > 60 05/25/20 09:07 Random Glucose 78 mg/dL (60-115) 05/25/20 09:07 Calcium 7.8 mg/dL (8.4-10.2) L 05/25/20 09:07 Coronavirus (PCR) NEGATIVE (Negative) 05/24/20 05:42 Blood Type AB Positive 05/24/20 05:52 Antibody Screen NEGATIVE 05/24/20 05:52 Discharge Plan Discharge Anticipated Discharge Date/Time: 05/25/20 11:37 Patient Disposition: Home, Self-Care Referrals: Rivera Gonzalez MD [Primary Care Provider] - Discharge Medications: Continued lorazepam 1 mg Tablet 1 mg PO BID PRN (Reason: Anxiety) RF: 0 pantoprazole 40 mg tablet,delayed release (DR/EC) 40 mg PO QPM RF: 0 hydroxyzine HCl 25 mg Tablet 50 mg PO BEDTIME RF: 0 sumatriptan succinate 100 mg tablet 100 mg PO BID PRN (Reason: Headache) RF: 0 duloxetine 60 mg capsule,delayed release(DR/EC) 60 mg PO QPM RF: 0 albuterol sulfate 90 mcg/actuation HFA aerosol inhaler 2 puff PO Q4H PRN (Reason: Shortness Of Breath) RF: 0 ondansetron HCl [Zofran] 4 mg tablet 4 mg PO Q6H PRN (Reason: nausea and vomiting) Qty: 30 RF: 0 No Action sucralfate 1 gram tablet 1 g PO BID Qty: 60 RF: 6 cholecalciferol (vitamin D3) 50 mcg (2,000 unit) capsule 50 mcg PO DAILY Qty: 90 RF: 1 Discharge Orders: Discharge Order (Routine); Ordered 05/25/20 Ordered By: Aidan Rangel Diet: other Activity on Discharge: No heavy lifting Discharge Date/Time: 05/25/20 13:12 Activity Restrictions/Additional Instructions: INSTRUCTIONS You are being discharged home on bariatric diet phase 1. Continue this today and start bariatric phase 2 tomorrow morning. Follow all instructions in the bariatric hand book and call with any questions. No lifting, sexual relations, tub baths or vigorous exercise, do not restart until told to do so by Dr Rangel. No alcohol, tobacco or caffeine products. ADMITTING DIAGNOSIS: morbid obesity, anxiety/depression, asthma, GERD, migraines DISCHARGE DIAGNOSIS: same, s/p laparoscopic sleeve gastrectomy and hiatal hernia PAST SURGICAL HISTORY: section, lumbar surgery PROCEDURE: upper endoscopy, laparoscopic sleeve gastrectomy and repair of hiatal hernia DISCHARGE SUMMARY: History of Present Illness: The patient is a 45 year-old woman with a BMI of 38.96 kg/m2 and associated co- morbidities as described above. The patient had extensive work-up,lost 19.4 lbs preoperatively and was electively scheduled for laparoscopic, possible open sleeve gastrectomy and gastropexy. Risks and complications of the surgery were discussed with the patient in advance, particularly the possibility of , pulmonary embolism, anastomotic leak, bleeding, bowel injury, GERD, cardiac, renal or pulmonary complications. The patient understood all the risks and wasin agreement with the surgical plan. Hospital Course: The patient underwent an uneventful laparoscopic sleeve gastrectomy with gastropexy and repair of hiatal hernia on the day of admission. Postoperatively, the patient was transferred to the surgical floor and hemoglobin the first 8 hours after surgery was 13.3 mg/dl. The patient was on IV Acetaminophen and IV dilaudid for pain control. Patient was started on bariatric phase 1 diet POD #0. On postoperative day one, the patient was feeling well without nausea, vomiting, fevers, or tachycardia. The patient had some mild incisional pain. The abdomen was soft. On the morning of postoperative day one, the patient was continued on 1 ounce of water or ice every half hour. During the first day, the patient did fairly well, having some incisional pain, but able to ambulate adequately and to tolerate liquids well. Since the patient is doing well, we decided that the patient was ready to be discharged. The patient was given instructions to follow-up with me next week an d to call my office for any fever over 101, persistent abdominal pain, nausea, vomiting, GERD, change in the color of the DONALD fluid, symptoms of DVT such as calf tenderness, or leg swelling, or pulmonary embolism such as chest pain or shortness of breath. The patient was also instructed to drink 40-60 ounces of liquids per day using the 1-ounce cups. The patient was given prescription for Tylenol for pain, Zofran prn for nausea, and pantoprazole and carafate. The patient was encouraged to ambulate and use the incentive spirometer. The patient was allowed to shower, but no baths, and encouraged to stay active at home. All of these instructions were given to the patientpersonally. All questions were answered and the patient understood all instructions, the instructions were also given to the patient in print. Visit Report Forms: Patient Portal Discharge page Care Plan Goals: Weight loss Health Concerns: Obesity Plan of Treatment: See discharge instructions
== END 2020-05-25 13:12 | disposition home or self-care (01) | DRG 403 ==
LOC: HO.SSSA 10:42 → HO.S3 11:48
PROVIDERS: Physician Assistant; Admitting Provider Surgery; PCP Family Medicine; Visit Provider Surgery
PROC: 0DB64Z3 Excision of Stomach, Percutaneous Endoscopic Approach, Vertical (ICD-10-PCS; CPT 43845; principal; 2020-05-24 07:30)
DX: E66.01 Morbid (severe) obesity due to excess calories (principal); K44.0 Diaphragmatic hernia with obstruction, without gangrene; F41.9 Anxiety disorder, unspecified; F32.9 Major depressive disorder, single episode, unspecified; K66.0 Peritoneal adhesions (postprocedural) (postinfection); Z20.828 Contact with and (suspected) exposure to other viral communicable diseases; Z68.34 Body mass index [BMI] 34.0-34.9, adult; Z79.899 Other long term (current) drug therapy
CPT/HCPCS: 36415; 71045; 71046; 80048; 85014; 85018; 85025; 86850; 86900; 86901; 88307; 88342; 99024; A4649; J0131; J0690; J1100; J1170; J2250; J2370; J2405; J3010; U0003

== ENCOUNTER → 2020-06-01 07:51 | Outpatient (BNVA) | payer BC, SELFPAY | PROVIDERS: PCP Family Medicine; Referring Provider Family Medicine; Visit Provider Surgery | DX: Z76.89 Persons encountering health services in other specified circumstances (principal) ==

== ENCOUNTER → 2020-07-01 07:04 | Outpatient (BNVA) | payer BC, SELFPAY | PROVIDERS: PCP Family Medicine; Referring Provider Family Medicine; Visit Provider Surgery | DX: Z76.89 Persons encountering health services in other specified circumstances (principal) ==

== ENCOUNTER → 2020-08-01 08:22 | Outpatient (BNVA) | payer BC, SELFPAY | PROVIDERS: PCP Family Medicine; Visit Provider Surgery | DX: Z76.89 Persons encountering health services in other specified circumstances (principal) ==

== ENCOUNTER → 2020-09-07 08:21 | Outpatient (BNVA) | payer BC, SELFPAY | PROVIDERS: PCP Family Medicine; Visit Provider Surgery ==

== ENCOUNTER → 2020-10-12 08:10 | Outpatient (BNVA) | payer BC, SELFPAY | PROVIDERS: PCP Family Medicine; Visit Provider Surgery ==

== ENCOUNTER → 2020-10-18 12:52 | Outpatient (BNVA) | payer BC, SELFPAY | PROVIDERS: PCP Family Medicine; Visit Provider Dietitian, Registered ==

== ENCOUNTER → 2020-11-16 08:31 | Outpatient (BNVA) | payer BC, SELFPAY | PROVIDERS: PCP Family Medicine; Visit Provider Physician Assistant ==

== ENCOUNTER 2021-05-29 10:18 | Outpatient (REF) | payer BC, SELFPAY ==
[2021-05-29 11:38] LABS: MANUAL DIFF FLAG NO
[2021-05-29 11:58] LABS: Basophils Percent Auto 0.6 % (0-2); Eosinophils Absolute Auto 0.2 X10*3/uL (0.0-0.4); Eosinophils Percent Auto 2.2 % (0-4); Hematocrit 43.1 % (37.0-47.0); Hemoglobin 14.1 g/dl (12.0-16.0); Imm Gran Abs Auto 0.04 X10*3/uL (0.00-0.03); Imm Gran Pct Auto 0.6 % (0.0-0.4); Lymphocytes Absolute Auto 2.2 X10*3/uL (1.2-4.9); Lymphocytes Percent Auto 30.1 % (20-40); Mean Corpuscular HGB Conc 32.7 g/dl (31.0-35.0); Mean Corpuscular Hemoglobin 29.7 pg (27.0-33.0); Mean Corpuscular Volume 90.7 fL (80.0-98.0); Mean Platelet Volume 9.9 fL (9.4-12.3); Monocytes Absolute Auto 0.4 X10*3/uL (0.1-1.2); Monocytes Percent Auto 5.7 % (2-11); Neutrophils Absolute Auto 4.4 x10*3/uL (2.0-8.3); Neutrophils Percent Auto 60.8 % (45-73); Platelet Count 299 X10*3/uL (160-400); Red Blood Count 4.75 X10*6/uL (4.20-5.50); Red Cell Distribution Width 12.3 % (11.0-16.0); White Blood Count 7.2 X10*3/uL (4.8-10.8)
[2021-05-29 12:04] LABS: Estimated Average Glucose 105 mg/dL; Hemoglobin A1c % 5.3 %
[2021-05-29 12:40] LABS: Alanine Aminotransferase 21 U/L (0-31); Albumin Level 4.1 g/dL (3.5-5.0); Alkaline Phosphatase 67 U/L (39-117); Anion Gap 11 (12-20); Aspartate Amino Transferase 20 U/L (5-31); Bilirubin Total 0.3 mg/dL (0.0-1.0); Blood Urea Nitrogen 19 mg/dL (9-16); C Reactive Protein 0.18 mg/dL (< or = 0.50); Calcium 9.2 mg/dL (8.4-10.2); Carbon Dioxide 29 mmol/L (22-29); Chloride 105 mmol/L (96-108); Cholesterol 187 mg/dL; Estimated Glomerular Filt Rate 47; Glucose Random 80 mg/dL (60-115); HDL Cholesterol 56 mg/dL; Iron 60 mcg/dL (30-160); LDL Cholesterol Calculated 113 mg/dl; Percent Iron Saturation 17 % (15-50); Potassium 4.4 mmol/L (3.3-5.1); Sodium 141 mmol/L (135-145); Total Iron Binding Capacity 358 mcg/dL (228-428); Total Protein 7.2 g/dL (6.5-8.0); Triglycerides 90 mg/dL; Unsaturated Iron Binding 298 ug/dL
[2021-05-29 12:50] LABS: Insulin 6 uU/mL (2-29)
[2021-05-29 12:58] LABS: TSH reflex Free T4 1.42 uIU/mL (0.32-4.0); Vitamin D 25-OH Total 32.5 ng/mL (>30)
[2021-05-29 13:36] LABS: Ferritin 37 ng/mL (10-250)
[2021-05-29 13:59] LABS: Folate 13.2 ng/mL (> or = 4.0); Vitamin B12 801 pg/mL (200-900)
[2021-05-30 16:21] LABS: Calcium (PTHI) 9.4 mg/dL (8.6-10.2); PTHI 79 pg/mL (14-64)
[2021-06-01 06:56] LABS: Zinc 86 mcg/dL (60-130)
[2021-06-02 15:41] LABS: Vitamin A 45 mcg/dL (38-98)
[2021-06-03 13:01] LABS: Vitamin B1 26 nmol/L (8-30)
== END 2021-05-29 10:19 | disposition home or self-care (01) ==
LOC: HO.LAB 10:18
PROVIDERS: Absent Provider Physician Assistant; PCP Family Medicine; Referring Provider Family Medicine; Visit Provider Physician Assistant Surgical
DX: E66.3 Overweight (principal); Z98.84 Bariatric surgery status
CPT/HCPCS: 36415; 80053; 80061; 82306; 82607; 82728; 82746; 83036; 83525; 83540; 83970; 84425; 84443; 84590; 84630; 85025; 86140

== ENCOUNTER → 2021-06-19 08:07 | Outpatient (BNVA) | payer BC, SELFPAY | PROVIDERS: PCP Family Medicine; Visit Provider Dietitian, Registered | DX: E66.3 Overweight (principal); Z68.27 Body mass index [BMI] 27.0-27.9, adult | CPT/HCPCS: 97803 ==

== ENCOUNTER 2023-05-10 09:02 | Outpatient (AMB) | payer BC, SELFPAY ==
[2023-05-10 08:25] VITALS: BMI 29.4
--- NOTE | 2023-05-10 08:25 | MHC.OFFVISWM ---
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 Allergies bacitracin Allergy (Intermediate, Verified 05/01/23 14:26) Rash doxycycline Allergy (Intermediate, Verified 05/01/23 14:26) Rash IV Contrast Allergy (Intermediate, Uncoded 05/01/23 14:26) hives Medication List - Last Reconciled 05/10/23 by SHIV Buenrostro albuterol sulfate 90 mcg/actuation 2 puffs PO Q4H PRN bupropion HCl 150 mg PO QAM calcium citrate 200 mg PO BID cholecalciferol (vitamin D3) 50 mcg PO DAILY duloxetine 60 mg PO QPM hydroxyzine HCl 50 mg PO BEDTIME lorazepam 1 mg PO BID PRN cszukhjiibns-lpu-afzt-FA-vit K 45 mg iron- 800 mcg-120 mcg (Bariatric Multivitamins) caps PO naltrexone 50 mg PO BID sumatriptan succinate 100 mg PO BID PRN HPI HPI Comments History of Present Illness Details Patient is a pleasant 48-year-old female who underwent a sleeve gastrectomy on 06/20/2020. This is her 3 year follow-up. Her initial weight was 241 lb. Her preop weight was 222 lb. Weight today is 182 lb with a BMI of 29.4. She states her PCP Rx naltrexone and Buproprion daily to help w weight loss. Pt feels as though she is in a better mood but no significant change in cravings. She is not been having follow up and has not had guidance. She has not been eating right. She also has been experiencing the feeling of food getting stuck in her stomach. States her goal is to lose 20 pounds and get skin removal surgery. She has had intermittent rashes to the skin under her abdomen. She has applied Lotrimen cream and the rash would improve but has had recurrence. Has Celebrate 4 in 1, no bars. Meal plan: nothing structured. apple, PB, Exercise plan: nothing formal, can join a gym Any post op complications: none PB: never DM: never HTN: resolved Hyperlipidemia: never GERD:?0-5 scale ??0 = no symptoms ??1 = symptoms noticeable but not bothersome 2 =symptoms bothersome but not daily ? 3 = symptoms bothersome and daily 4 = symptoms affect daily activities 5 = symptoms are incapacitating, unable to do daily activities ? How bad is the heartburn: 0 ? Heartburn while lying down: 0 ? Heartburn when standing up: 0 ? Heartburn after meals: 0 ? Does heartburn change your diet: 0 ? Does heartburn wake you up from sleep: 0 ? Do you have difficulty swallowin ? Do you have pain with swallowin ? If you take medicine for your reflux, does this affect your daily life: 0 Satisfaction with present condition - satisfied or not satisfied: not satisfied [facility] Medical History Left ventricular hypertrophy History of use of contraceptive intrauterine device (IUD) Lab test negative for COVID-19 virus Back pain Anxiety Depression GERD (gastroesophageal reflux disease) Migraines Asthma Surgical History History of sleeve gastrectomy H/O colonoscopy Obesity History of lumbar surgery Hx of section Family History Father HTN (hypertension) Hyperlipidemia Mother HTN (hypertension) Obesity Diabetes Anxiety Skin cancer Son No problems noted. Daughter No problems noted. Social History Are you a primary pet caretaker to a significant other at home: Yes Do you presently have visiting nurse or other home services: No Alcohol intake: never Years Smoked: 6 service: No Current occupational status: employed Assessment & Plan Assessment & Plan (1) Overweight: Code(s): E66.3 - Overweight Plan: Check yearly labs. New meal plan: Celebrate 4 in 1, 2 scoops in 10 oz of unsweetened almond milk each over 2 hours, x2. Meal at night with 7 fork fulls of protein and 7 for fulls of salad or vegetables. An apple if desired between mid day and her meal and half a cup of fresh berries if needed after dinner. Drink 64 oz of water daily, avoiding soda, juice and alcohol. Exercise plan: Begin by watching a stretching for beginners video. Start slowly and begin to stretch your muscles. You should do this before and after each exercise session to prevent injury. Please join [employer] gym or other gym near your home. Ask the manager talent management or one of the trainers how to use the machines if you are unfamiliar with them. Start elliptical with a resistance of 2. Increase resistance by 1 every 3 min to your most comfortable resistance with a max resistance of 8. Reduce the resistance by 1 every 3 minutes back down to 2 and repeat cycles for 300 calories. Alternatively, start treadmill with a speed of 3.0 and incline of 0, increasing incline by 1 every 3 minutes to the highest comfortable level (max 6 for now) then decrease in the same fashion. Repeat process to a goal of 300 calories. Goal of 2000 calories burned or more weekly. You may also consider use of the stationary bike. The easiest would be to chose the fat-burn or interval training program on the machine and do this until you reach the 300 calorie goal. Alternatively, you can manually adjust the resistance in a similar fashion as mentioned above, (resistance of 2-8 with a goal speed of 12 mph). Tracking calories is essential. Alternatively start walking outside daily, tracking calories with a goal of 300 calories per day, daily. You can download the karin Eved which can track your time, distance and calories while walking outside. You press start in the karin when you start and then stop when you are finished. RTC 4 weeks Orders: Orders Lipid Panel Today E21.3 - Hyperparathyroidism, unspecified, E66.3 - Overweight IRON PROFILE Today E21.3 - Hyperparathyroidism, unspecified, E66.3 - Overweight Complete Blood Count Auto Diff Today E21.3 - Hyperparathyroidism, unspecified, E66.3 - Overweight Vitamin A Today E21.3 - Hyperparathyroidism, unspecified, E66.3 - Overweight Ferritin Today E21.3 - Hyperparathyroidism, unspecified, E66.3 - Overweight TSH reflex Free T4 Today E21.3 - Hyperparathyroidism, unspecified, E66.3 - Overweight Vitamin D 25-OH Total Today E21.3 - Hyperparathyroidism, unspecified, E66.3 - Overweight Hemoglobin A1c Today E21.3 - Hyperparathyroidism, unspecified, E66.3 - Overweight Basic Metabolic Panel Today E21.3 - Hyperparathyroidism, unspecified, E66.3 - Overweight Insulin Today E21.3 - Hyperparathyroidism, unspecified, E66.3 - Overweight Vitamin B12 and Folate Today E21.3 - Hyperparathyroidism, unspecified, E66.3 - Overweight Zinc Today E21.3 - Hyperparathyroidism, unspecified, E66.3 - Overweight Vitamin B1 Today E21.3 - Hyperparathyroidism, unspecified, E66.3 - Overweight C Reactive Protein Today E21.3 - Hyperparathyroidism, unspecified, E66.3 - Overweight PTHI Today E21.3 - Hyperparathyroidism, unspecified, E66.3 - Overweight Telehealth Telehealth Location of provider rendering services: practice address Location of patient: other Patient Identification confirmed using: Name, : Yes Telehealth method: video Patient verbally consented to treatment: Yes Patient verbally consented to billing insurance company: Yes Patient informed of any privacy concerns related to visit: Yes Minutes spent on Phone/Video with Pt.: 28 Coding Level of Care Code Tele Est Pt Level 4 (78583) Diagnoses Overweight E66.3 Time Spent (min) 45
== END 2023-05-10 09:09 | disposition home or self-care (01) ==
LOC: HO.HBS 09:02
PROVIDERS: PCP Family Medicine; Visit Provider Physician Assistant Surgical
DX: E66.3 Overweight (principal); Z68.29 Body mass index [BMI] 29.0-29.9, adult
CPT/HCPCS: 99214

== ENCOUNTER → 2023-05-10 09:02 | Outpatient (BNVA) | payer BC, SELFPAY | PROVIDERS: PCP Family Medicine; Visit Provider Physician Assistant Surgical | DX: E66.3 Overweight (principal); E21.3 Hyperparathyroidism, unspecified ==

== ENCOUNTER 2023-05-14 08:31 | Outpatient (REF) | payer BC, SELFPAY ==
[2023-05-14 08:59] LABS: MANUAL DIFF FLAG NO
[2023-05-14 09:02] LABS: Basophils Absolute Auto 0.1 X10*3/uL (0.0-0.2); Basophils Percent Auto 0.7 % (0-2); Eosinophils Absolute Auto 0.1 X10*3/uL (0.0-0.4); Eosinophils Percent Auto 1.2 % (0-4); Hematocrit 42.1 % (37.0-47.0); Hemoglobin 13.8 g/dl (12.0-16.0); Imm Gran Abs Auto 0.04 X10*3/uL (0.00-0.03); Imm Gran Pct Auto 0.5 % (0.0-0.4); Lymphocytes Absolute Auto 1.4 X10*3/uL (1.2-4.9); Lymphocytes Percent Auto 16.1 % (20-40); Mean Corpuscular HGB Conc 32.8 g/dl (31.0-35.0); Mean Corpuscular Hemoglobin 29.7 pg (27.0-33.0); Mean Corpuscular Volume 90.5 fL (80.0-98.0); Mean Platelet Volume 9.3 fL (9.4-12.3); Monocytes Absolute Auto 0.5 X10*3/uL (0.1-1.2); Monocytes Percent Auto 5.1 % (2-11); Neutrophils Absolute Auto 6.7 x10*3/uL (2.0-8.3); Neutrophils Percent Auto 76.4 % (45-73); Platelet Count 280 X10*3/uL (160-400); Red Blood Count 4.65 X10*6/uL (4.20-5.50); Red Cell Distribution Width 12.9 % (11.0-16.0); White Blood Count 8.8 X10*3/uL (4.8-10.8)
[2023-05-14 09:12] LABS: Estimated Average Glucose 97 mg/dL
[2023-05-14 09:54] LABS: Anion Gap 14 (12-20); Blood Urea Nitrogen 9 mg/dL (9-16); C Reactive Protein 0.16 mg/dL (< or = 0.50); Calcium 9.5 mg/dL (8.4-10.2); Carbon Dioxide 27 mmol/L (22-29); Chloride 104 mmol/L (96-108); Cholesterol 182 mg/dL (<200); Estimated Glomerular Filt Rate > 60; Glucose Random 99 mg/dL (60-115); HDL Cholesterol 51 mg/dL (>40); Iron 149 mcg/dL (30-160); LDL Cholesterol Calculated 113 mg/dL (<100); Percent Iron Saturation 49 % (15-50); Potassium 4.4 mmol/L (3.3-5.1); Sodium 141 mmol/L (135-145); Total Iron Binding Capacity 302 mcg/dL (228-428); Triglycerides 91 mg/dL (<150); Unsaturated Iron Binding 153 ug/dL
[2023-05-14 10:04] LABS: Ferritin 46 ng/mL (10-250); Insulin 4 uU/mL (2-29); TSH reflex Free T4 1.21 uIU/mL (0.32-4.0); Vitamin D 25-OH Total 30.6 ng/mL (>30)
[2023-05-14 10:13] LABS: Folate 8.2 ng/mL (> or = 4.0); Vitamin B12 412 pg/mL (200-900)
[2023-05-15 16:34] LABS: Calcium (PTHI) 9.5 mg/dL (8.6-10.2); PTHI 43 pg/mL (16-77)
[2023-05-17 03:09] LABS: Zinc 88 mcg/dL (60-130)
[2023-05-19 14:04] LABS: Vitamin B1 14 nmol/L (8-30)
[2023-05-20 14:43] LABS: Vitamin A 44 mcg/dL (38-98)
== END 2023-05-14 08:32 | disposition home or self-care (01) ==
LOC: HO.LAB 08:31
PROVIDERS: PCP Physician Assistant Surgical; Visit Provider Family Medicine
DX: E66.3 Overweight (principal); E21.3 Hyperparathyroidism, unspecified
CPT/HCPCS: 36415; 80048; 80061; 82306; 82607; 82728; 82746; 83036; 83525; 83540; 83970; 84425; 84443; 84590; 84630; 85025; 86140

== ENCOUNTER 2024-02-11 13:46 | Outpatient (AMB) | payer BC, SELFPAY ==
--- NOTE | 2024-02-11 13:52 | MHC.OFFVISWM ---
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 This is her 3 year 8 month follow-up. Her initial weight was 241 lb. Her preop weight was 222 lb. Last seen on 05/10/2023, weight was 182 lb with a BMI of 29.4. Weight today is 196 lb with a BMI of 31.6. She states she has not been eating right. She is frustrated with her weight gain and snacking. No multivit Meal plan: nothing formal Exercise plan: treadmill at [employer], 4 x per week, not tracking calories Any post op complications: none PB: never DM: never HTN: resolved Hyperlipidemia: never GERD:?0-5 scale ??0 = no symptoms ??1 = symptoms noticeable but not bothersome 2 =symptoms bothersome but not daily ? 3 = symptoms bothersome and daily 4 = symptoms affect daily activities 5 = symptoms are incapacitating, unable to do daily activities ? How bad is the heartburn: 0 ? Heartburn while lying down: 0 ? Heartburn when standing up: 0 ? Heartburn after meals: 0 ? Does heartburn change your diet: 0 ? Does heartburn wake you up from sleep: 0 ? Do you have difficulty swallowin ? Do you have pain with swallowin ? If you take medicine for your reflux, does this affect your daily life: 0 Satisfaction with present condition - satisfied or not satisfied: not satisfied [facility] Medical History Left ventricular hypertrophy History of use of contraceptive intrauterine device (IUD) Lab test negative for COVID-19 virus Back pain Anxiety Depression GERD (gastroesophageal reflux disease) Migraines Asthma Surgical History History of sleeve gastrectomy H/O colonoscopy Obesity History of lumbar surgery Hx of section Family History Father HTN (hypertension) Hyperlipidemia Mother HTN (hypertension) Obesity Diabetes Anxiety Skin cancer Son No problems noted. Daughter No problems noted. Social History (Updated 02/11/24 @ 13:54 by Xi Moy CMA) Are you a primary healthcare market consultant to a significant other at home: Yes Do you presently have visiting nurse or other home services: No Alcohol intake: never Patient Tobacco Use Status: Former Tobacco user Years Smoked: 6 service: No Current occupational status: employed Physical Exam Vital Signs: Last Vital Signs Temp 97.0 F 02/11/24 14:00 Pulse 90 02/11/24 14:00 BP 132/86 02/11/24 14:00 Pulse Ox 99 02/11/24 14:00 Oxygen Delivery Method Room Air 02/11/24 14:00 BMI result Body Mass Index 31.6 Const General: cooperative and no acute distress Orientation/consciousness: patient oriented x3 Resp Effort & Inspection: normal respiratory effort Auscultation: clear to auscultation bilaterally Cardio Rate: regular rate Rhythm: regular rhythm GI Inspection: Yes normal to inspection and Yes incision (well healed) Palpation (GI): Soft to palpation and no masses Neuro General: patient oriented x3 Assessment & Plan Assessment & Plan (1) Obesity (BMI 30-39.9): Code(s): E66.9 - Obesity, unspecified Category: Medical Plan: Patient was given the right BMI Foodily information. She will start a meal plan and exercise plan she does have a membership to [employer]. I have encouraged her to take bariatric fusion multivitamin and calcium plus D. She states that she just had labs done through her primary care physician and she will fax over the results. I will supplement labs with any missing data. She has been encouraged to text her weight weekly. We will arrange for follow-up appointment in 4-5 weeks.
[2024-02-11 14:00] VITALS: BP 132/86; PULSE 90; TEMP 36.1; O2SAT 99; BMI 31.6
== END 2024-02-11 14:31 | disposition home or self-care (01) ==
PROVIDERS: PCP Physician Assistant Surgical; Visit Provider Physician Assistant Surgical
DX: E66.9 Obesity, unspecified (principal); Z68.31 Body mass index [BMI] 31.0-31.9, adult; Z90.3 Acquired absence of stomach [part of]; Z98.84 Bariatric surgery status
CPT/HCPCS: 99214

== ENCOUNTER → 2024-02-11 13:46 | Outpatient (BNVA) | payer BC, SELFPAY | PROVIDERS: PCP Physician Assistant Surgical; Visit Provider Physician Assistant Surgical ==

== ENCOUNTER 2024-03-17 11:01 | Outpatient (AMB) | payer BC, SELFPAY ==
--- NOTE | 2024-03-17 11:10 | A.OFFVIS_ITS ---
VS Expanded 03/17/24 11:25 BP 138/91 H Blood Pressure Location Rt brachial Blood Pressure Position Sitting Pulse 78 Pulse Source Pulse Oximeter Temp 97.2 F Temperature Source Temporal Artery Scan Pulse Oximetry 98 Oxygen Delivery Method Room Air Height 5 ft 6 in Weight 188 lb 3.2 oz BMI 30.4 Body Fat % 38.9 Body Fat Mass 73.2 Fat Free Mass 114.8 Visceral Fat Rating 8.0 Body Water % 43.5 Body Water Mass 81.8 Muscle Mass/Score 109.2 Basal Metabolic Rate/Score 1,580 Intake Visit Reasons: (OV) POM LSG 05/24/20 Allergies bacitracin Allergy (Intermediate, Verified 03/17/24 11:14) Rash doxycycline Allergy (Intermediate, Verified 03/17/24 11:14) Rash IV Contrast Allergy (Intermediate, Uncoded 05/01/23 14:26) hives HPI Comments Details: Patient is a pleasant 49-year-old female who underwent a sleeve gastrectomy on 06/20/2020. This is her 3 year 9 month follow-up. Her initial weight was 241 lb. Her preop weight was 222 lb. Weight today is 188.2 lb with a BMI of 30.4. She states she has been using the [employer] karin. She has lost approximately 8 point 4 lb since her last visit about a month ago. Meal plan: 4 small fit crunch bars (15 gm protein each) Exercise plan: treadmill at [employer], 4 x per week, 400-415 calories per session [facility] Medical History Left ventricular hypertrophy History of use of contraceptive intrauterine device (IUD) Lab test negative for COVID-19 virus Back pain Anxiety Depression GERD (gastroesophageal reflux disease) Migraines Asthma Surgical History History of sleeve gastrectomy H/O colonoscopy Obesity History of lumbar surgery Hx of section Family History Father HTN (hypertension) Hyperlipidemia Mother HTN (hypertension) Obesity Diabetes Anxiety Skin cancer Son No problems noted. Daughter No problems noted. 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 Do you presently have visiting nurse or other home services: No Alcohol intake: never Patient Tobacco Use Status: Former Tobacco user Years Smoked: 6 service: No Current occupational status: employed Physical Exam Vital Signs: Last Vital Signs Temp 97.2 F 03/17/24 11:25 Pulse 78 03/17/24 11:25 BP 138/91 H 03/17/24 11:25 Pulse Ox 98 03/17/24 11:25 Oxygen Delivery Method Room Air 03/17/24 11:25 BMI result Body Mass Index 30.4 Const General: healthy appearing and no acute distress Resp Effort & Inspection: normal respiratory effort Auscultation: clear to auscultation bilaterally Cardio Rate: regular rate Rhythm: regular rhythm GI Auscultation: normal bowel sounds Extrem General: Yes normal to inspection Assessment & Plan Assessment & Plan (1) Obesity (BMI 30-39.9): Code(s): E66.9 - Obesity, unspecified Category: Medical Plan: Patient is making improvements. She will continue to follow the right BMI dot com plan. Discussed changing her exercise routine to include variation, including elliptical, body weight exercises, rowing, stationary bike. She will continue to communicate weekly. Follow-up in the office in 6 weeks
[2024-03-17 11:25] VITALS: BP 138/91; PULSE 78; TEMP 36.2; O2SAT 98; BMI 30.4
== END 2024-03-17 12:48 | disposition home or self-care (01) ==
PROVIDERS: PCP Physician Assistant Surgical; Visit Provider Physician Assistant Surgical
DX: E66.9 Obesity, unspecified (principal); Z68.30 Body mass index [BMI] 30.0-30.9, adult; Z90.3 Acquired absence of stomach [part of]; Z98.84 Bariatric surgery status
CPT/HCPCS: 99213

== ENCOUNTER → 2024-03-17 11:01 | Outpatient (BNVA) | payer BC, SELFPAY | PROVIDERS: PCP Physician Assistant Surgical; Visit Provider Physician Assistant Surgical ==